=== PATIENT | female | born 1955 | race Caucasian/White ===

== ENCOUNTER 2025-01-30 08:09 | Day surgery (SDC) | payer MEDICARE, OTHER, SELFPAY ==
--- NOTE | 2025-01-24 16:53 | EXP.HP ---
History of Present Illness *Admission Date: 01/30/25 *History of present illness: Mrs. Ley is a 69-year-old female who is here for screening/surveillance colonoscopy secondary to a personal history of adenomatous colon polyps and family history of colon cancer. The patient's father had colon cancer at the age of 79. She did have a colonoscopy in 2011 at which time polyps were removed. Her last colonoscopy with me was in September 2016 and she had 4 diminutive colon polyps (small tubular adenomas x 2/hyperplastic polyps x 2) which were removed. The examination is deemed medically necessary for screening/surveillance colonoscopy. The patient has been seen, interviewed and examined prior to the procedure by both myself and the anesthesia provider. [facility] Disclaimer: The information contained in this section may have been updated after the patient was seen, as this information can be updated by other users. Medical History HTN (hypertension) Surgical History History of tubal ligation History of hysterectomy Family History Other Family history of cancer Family history of diabetes mellitus Family history of heart disease Social History Smoking Status: Never smoker alcohol intake: never current occupational status: unemployed Travel in the last 8 weeks?: None Have you lived/traveled outside [place] in past 30 days?: No Contact w/someone who lives/traveled outside [place] past 30 days?: No Exposure to someone with infectious disease in past 14 days?: No Do you have a fever (greater than 100.4 F or 38 C)?: No Have you tested positive for COVID-19?: Yes Exposed to someone with COVID-19 in past 14 days?: No Do you have a sore throat?: No Do you have a cough?: No Do you have any weakness?: No Are you experiencing any nausea/vomitting?: No Do you have any diarrhea?: No Are you experiencing any unusual bleeding?: No Do you have any muscle aches/pain?: No Do you have any abdominal pain?: No Are you experiencing loss of taste or smell?: No Review of Systems Review of Systems Review of systems (narrative): Negative *Cardiovascular Comments: Negative *Gastrointestinal Comments: Negative *Genitourinary Comments: Negative *Musculoskeletal Comments: Negative *Neurologic Comments: Negative Meds Home Medications and Allergies Home Medications ?Medication ?Instructions ?Recorded ?Confirmed ?Type sodium,potassium,mag sulfates 17.5 See Rx Instructions PO .COMPLEX 01/17/25 Rx gram-3.13 gram-1.6 gram oral soln #354 mL (Suprep Bowel Prep Kit) cholecalciferol (vitamin D3) 25 25 mcg PO DAILY 01/27/25 01/27/25 History mcg (1,000 unit) tablet (Vitamin D3) metoprolol tartrate 50 mg tablet 50 mg PO DAILY 01/27/25 01/30/25 History New Prescriptions to Start Prescriptions: Allergies Allergy/AdvReac Type Severity Reaction Status Date / Time erythromycin base Allergy Diarrhea Verified 01/30/25 08:28 nitrofurantoin (From AdvReac Fever Verified 01/30/25 08:28 Macrodantin) Exam *Routine HEENT Exam Head: Present normocephalic Eye: Present EOMI and PERRL ENT: Present mucous membranes moist *Routine Neck Exam Neck: Present supple *Routine Respiratory Exam Respiratory: Present CTA bilaterally *Routine Cardiovascular Exam Cardiovascular: Present RRR *Routine Abdominal Exam Abdominal: Present soft and normoactive bowel sounds; Absent tenderness *Routine Rectal Exam Rectal:: deferred *Routine Genitalia Exam Genitalia:: deferred *Routine Extremities Exam Extremities: Absent cyanosis, clubbing or edema *Routine Skin Exam Skin: Present warm; Absent rash *Routine Neurological Exam Neurological: Present alert and oriented X3 Assessment and Plan *Assessment and plan (1) Personal history of adenomatous and serrated colon polyps: Status: Acute Category: Medical Code(s): Z86.0101 - Personal history of adenomatous and serrated colon polyps (2) Family history of colon cancer in father: Status: Acute Category: Medical Code(s): Z80.0 - Family history of malignant neoplasm of digestive organs (3) Screening for colon cancer: Status: Acute Category: Medical Code(s): Z12.11 - Encounter for screening for malignant neoplasm of colon Plan A/P: 1. Personal history of adenomatous colon polyps and family history of colon cancer (father) is the preprocedural diagnosis. The patient will be anesthetized/sedated using MAC sedation. The patient has been seen and examined. Cardiac and lung assessment prior to the examination is stable. Proceed with planned screening/surveillance colonoscopy.
[2025-01-27 12:48] VITALS: BMI 39.4
--- NOTE | 2025-01-30 07:05 | P.PCN_ITS ---
[facility] Procedure Note Date: 01/30/25 Time: 10:19 Procedure Note:: Colonoscopy Procedure Report: Colonoscopy with cold snare polypectomy Endoscopist: Ashvin Sargent II, MD Referring physician: Otis Olvera MD Date of Procedure: January 30, 2025 Equipment: Olympus [id number] adult colonoscope Sedation: MAC sedation Indication: Mrs. Ley is a 69-year-old female who is here for screening/surveillance colonoscopy secondary to a personal history of adenomatous colon polyps and family history of colon cancer. The patient's father had colon cancer at the age of 79. She did have a colonoscopy in 2011 at which time polyps were removed. Her last colonoscopy with me was in September 2016 and she had 4 diminutive colon polyps (small tubular adenomas x 2/hyperplastic polyps x 2) which were removed. The patient reports no abdominal pain, weight loss, change in her bowel habits or rectal bleeding. The examination is deemed medically necessary for screening/surveillance colonoscopy. Procedure: Prior to the procedure, a history and physical exam was performed, and patient's medications and allergies were reviewed. The risks, benefits and alternatives of the sedation and procedure were discussed with the patient. All questions were answered and informed consent was obtained. The patient was brought to the procedure room. Patient identification and proposed procedure were verified by the physician and the nurse. The patient was placed in a left lateral decubitus position and the scope was passed under direct vision. Throughout the procedure, the patient's blood pressure, pulse, and oxygen saturations were monitored continuously. The colonoscopy was accomplished without difficulty. The patient tolerated the procedure well. Findings: On digital rectal examination there was normal rectal tone. There were no external hemorrhoids. The colonoscope was introduced through the anal canal to the rectum and advanced to the cecum. The ileocecal valve and appendiceal orifice were identified. The scope was advanced a short distance into the ileum which appeared grossly normal. The scope was then withdrawn into the colon. There were 2 diminutive polyps (ascending x 1 (4 mm) and descending x 1 (4 mm)). Both of these were removed via cold snare polypectomy. The remaining cecum, ascending, transverse, descending, sigmoid and rectum were grossly normal. There were no mucosal abnormalities identified. Upon retroflexion within the rectum there were grade 1-2 internal hemorrhoids. The preparation was excellent throughout with [place] Preparation Score of 9. The cecal time was 12 minutes. Impression: 1. Diminutive colonic polyps x 2 Plan: I will follow-up the polyp histology and recommend repeat screening/surveillance colonoscopy again in 7 years.
[2025-01-30 08:30] VITALS: BP 175/83; PULSE 63; RESP 16; TEMP 36.1; O2SAT 96; BMI 37.0
[2025-01-30] MEDS: LACTATED RINGERS 1000ML 1,000 ML 50 ML IV (08:40)
--- NOTE | 2025-01-30 10:04 | P.PNANES_ITS ---
[facility] Disclaimer: The information contained in this section may have been updated after the patient was seen, as this information can be updated by other users. Medical History HTN (hypertension) Surgical History History of tubal ligation History of hysterectomy Family History Other Family history of cancer Family history of diabetes mellitus Family history of heart disease Social History Smoking Status: Never smoker alcohol intake: never substance use type: unknown current occupational status: unemployed Travel in the last 8 weeks?: None [facility] Anesthesia Checklist Patient Identification Patient Identification: Arm Band and Verbal (Name & ) Structural Data Admitted From: Home Planned Operative Procedure/s: colonscopy Consent for Planned Operative Procedure(s) Verified: Yes Verified Documents: Surgical Consent and History and Physical NPO Status Verified Time NPO: 00:00 Additional verifications Anesthesia Reactions: No Previous Colonoscopy: Yes Airway Assessment Mallampati Score:: Class II Dentition: Poor Dentition Neurological Assessment Level of Consciousness: Awake, Alert and Appropriate Anesthesia Plan Anesthesia Risk discussed: Yes Anesthesia Plan: Verified ASA Class: II Anesthesia Type: MAC
[2025-01-30 10:24] VITALS: BP 109/57; PULSE 58; RESP 18; TEMP 36.3; O2SAT 96
[2025-01-30 10:54] VITALS: BP 158/74; PULSE 55; RESP 18; TEMP 36.3; O2SAT 96
== END 2025-01-30 11:20 | disposition home or self-care (01) ==
PROVIDERS: PCP Internal Medicine; Visit Provider Internal Medicine Gastroenterology
PROC: 0DJD8ZZ Inspection of Lower Intestinal Tract, Via Natural or Artificial Opening Endoscopic (ICD-10-PCS; CPT 45378; principal; 2025-01-30 10:00)
DX: Z12.11 Encounter for screening for malignant neoplasm of colon (principal); D12.2 Benign neoplasm of ascending colon; K63.5 Polyp of colon; Z86.0101 Personal history of adenomatous and serrated colon polyps; Z86.0102 Personal history of hyperplastic colon polyps; Z80.0 Family history of malignant neoplasm of digestive organs
CPT/HCPCS: 45385; 88305; J2003; J2704; J7120